=== PATIENT | female | born 1945 | race Caucasian/White ===

== ENCOUNTER 2021-06-25 11:44 | Inpatient (IN) | payer MEDICARE ==
[2021-06-25 12:37] LABS: #Basophils 0.1 10x3/uL (0.0-0.2); #Eosinphils 0.1 10x3/uL (0.0-0.5); #Monocytes 0.5 10x3/uL (0.0-1.1); #Neutrophils 3.1 10x3/uL (1.5-8.4); %Basophils 0.9 % (0.0-2.0); %Eosinophils 1.7 % (0.0-6.0); %Lymphocytes 30.5 % (18.0-47.0); %Monocytes 9.2 % (0.0-10.0); %Neutrophils 57.3 % (40.0-75.0); Hemoglobin 14.8 g/dL (12.0-15.5); Mean Corpuscular HGB CONC 32.7 g/dL (32.0-36.0); Mean Corpuscular Hemoglobin 28.5 pg (27.0-33.0); Mean Corpuscular Volume 87.3 fl (81.6-98.3); Mean Platelet Volume 10.2 fl (7.4-10.4); Platelet Count 259 10x3/uL (150-450); RBC Distribution Width 12.7 % (11.5-14.5); Red Blood Cell (RBC) Count 5.19 10x6/uL (3.90-5.03); White Blood Cell (WBC) Count 5.3 10x3/uL (3.5-10.5)
[2021-06-25 12:47] LABS: ALT (SGPT) 31 U/L (8-55); AST (SGOT) 31 U/L (5-34); Albumin 4.6 g/dL (3.4-4.8); Alkaline Phosphatase 92 U/L (40-110); Anion Gap 19 mmol/L (10-20); BUN (Urea Nitrogen) 11 mg/dL (9.8-20.1); Bilirubin, Total 0.8 mg/dL (0.2-1.2); Calc. Creatinine Clearance 0 mL/min (70-130); Calcium 10.4 mg/dL (7.8-10.44); Carbon Dioxide 19 mmol/L (23-31); Chloride 106 mmol/L (98-107); Globulin 2.9 g/dL (2.4-3.5); Glucose 117 mg/dL (83-110); Magnesium 1.9 mg/dL (1.6-2.6); Potassium 4.5 mmol/L (3.5-5.1); Protein, Total 7.5 g/dL (5.8-8.1); Sodium 139 mmol/L (136-145)
[2021-06-25] MEDS ORDERED: Meclizine HCl 25 MG TAB ONE (13:12)
[2021-06-25] MEDS ORDERED: Aspirin 325 MG TAB ONE (15:20)
[2021-06-25] MEDS ORDERED: Ondansetron PF 4 MG/2 ML Vial IVP PRN (16:56)
[2021-06-25] MEDS ORDERED: Ondansetron ODT 4 MG TAB PO PRN (16:56)
[2021-06-25] MEDS ORDERED: hydrALAZINE 20 MG/ML VIAL SLOW IVP PRN (16:56)
[2021-06-25 17:45] VITALS: BMI 34.7
[2021-06-25] MEDS: Atorvastatin Calcium 40 MG TAB PO SCH (21:52)
[2021-06-26 05:26] LABS: #Basophils 0.1 10x3/uL (0.0-0.2); #Eosinphils 0.2 10x3/uL (0.0-0.5); #Monocytes 0.8 10x3/uL (0.0-1.1); #Neutrophils 3.3 10x3/uL (1.5-8.4); %Basophils 1.1 % (0.0-2.0); %Eosinophils 3.3 % (0.0-6.0); %Monocytes 11.9 % (0.0-10.0); %Neutrophils 52.4 % (40.0-75.0); Mean Corpuscular HGB CONC 32.6 g/dL (32.0-36.0); Mean Corpuscular Hemoglobin 28.9 pg (27.0-33.0); Mean Corpuscular Volume 88.5 fl (81.6-98.3); Mean Platelet Volume 9.9 fl (7.4-10.4); Platelet Count 248 10x3/uL (150-450); RBC Distribution Width 12.9 % (11.5-14.5); Red Blood Cell (RBC) Count 4.85 10x6/uL (3.90-5.03); White Blood Cell (WBC) Count 6.3 10x3/uL (3.5-10.5)
[2021-06-26 05:39] LABS: Anion Gap 14 mmol/L (10-20); BUN (Urea Nitrogen) 10 mg/dL (9.8-20.1); Calc. Creatinine Clearance 97 mL/min (70-130); Calcium 9.7 mg/dL (7.8-10.44); Carbon Dioxide 23 mmol/L (23-31); Cardiac Risk 3.5 (Less than 4.5); Chloride 109 mmol/L (98-107); Cholesterol 197 mg/dl (< 200 Desired); Glucose 100 mg/dL (83-110); HDL Cholesterol 56 mg/dL (>60 Neg Risk); LDL Cholesterol, Calculated 105 mg/dL; Potassium 3.6 mmol/L (3.5-5.1); Sodium 142 mmol/L (136-145); Triglycerides 181 mg/dL (Less than 150)
[2021-06-26] MEDS: Acetaminophen 325 MG TAB PO PRN (05:58)
[2021-06-26] MEDS: Aspirin 81 mg Enteric Coated Tablet PO SCH (09:33)
[2021-06-26] MEDS ORDERED: Acetaminophen 325 MG TAB PO SCH (11:00)
[2021-06-26] MEDS ORDERED: Amlodipine 5 MG TAB PO SCH (16:00)
[2021-06-26] MEDS ORDERED: hydrALAZINE 20 MG/ML VIAL SLOW IVP PRN (17:17)
[2021-06-26 20:26] LABS: SARS-CoV-2 PCR by NAA Not Detected (NotDetected)
[2021-06-26] MEDS: hydrALAZINE 25 MG TAB PO SCH (22:10)
[2021-06-26] MEDS: Atorvastatin Calcium 40 MG TAB PO SCH (22:10)
[2021-06-27] MEDS: Acetaminophen 325 MG TAB PO PRN ×2 (02:54→08:50)
[2021-06-27] MEDS: Aspirin 81 mg Enteric Coated Tablet PO SCH (08:50)
[2021-06-27] MEDS: hydrALAZINE 25 MG TAB PO SCH (08:58)
[2021-06-27] MEDS ORDERED: Loratadine 10 MG TAB PO SCH (09:00)
[2021-06-27] MEDS ORDERED: Amlodipine 5 MG TAB PO SCH (09:00)
[2021-06-27] MEDS ORDERED: Amlodipine 10 MG TAB PO SCH (09:00)
[2021-06-27 12:46] LABS: Hemoglobin A1c 5.2 % (4.0-6.0)
[2021-06-27 12:59] VITALS: BP 139/67; TEMP 96.1
== END 2021-06-27 13:05 | disposition home or self-care (01) | DRG 305 ==
LOC: CSHERS 11:44 → INTOOBSV 16:41 → CSHTELE 16:41 → OBSVTOIN 16:41 → CSHTELE 16:47
PROVIDERS: ADMIT Internal Medicine; ATTEND Internal Medicine
DX: I16.1 Hypertensive emergency (principal); I16.0 Hypertensive urgency; R42 Dizziness and giddiness; I10 Essential (primary) hypertension; G83.21 Monoplegia of upper limb affecting right dominant side; R11.2 Nausea with vomiting, unspecified; Z20.822 Contact with and (suspected) exposure to COVID-19; Z90.49 Acquired absence of other specified parts of digestive tract; Z98.51 Tubal ligation status; Z98.890 Other specified postprocedural states; Z87.891 Personal history of nicotine dependence; Z72.89 Other problems related to lifestyle; Z82.0 Family history of epilepsy and other diseases of the nervous system
CPT/HCPCS: 36415; 70450; 70551; 80048; 80053; 80061; 83036; 83735; 84443; 84484; 85025; 93005; 93010; 93306; 93880; 94760; J0360; U0003; U0005

== ENCOUNTER 2021-09-11 13:48 | Outpatient (CLI) | payer MEDICARE | END 2021-09-11 13:49 | disposition home or self-care (01) | LOC: CSHMAMMO 13:48 | PROVIDERS: ATTEND Family Medicine | DX: Z12.31 Encounter for screening mammogram for malignant neoplasm of breast (principal); Z13.820 Encounter for screening for osteoporosis; M81.0 Age-related osteoporosis without current pathological fracture; M85.88 Other specified disorders of bone density and structure, other site; R92.1 Mammographic calcification found on diagnostic imaging of breast | CPT/HCPCS: 77063; 77067; 77080 ==